=== PATIENT | female | born 1960 | race Native Hawaiian/Other Pacific Islander ===

== ENCOUNTER 2017-05-25 18:18 | Outpatient (CLI) | payer OTHER ==
[~2017-05-25 18:18] MED LIST: ACET-689 PO; BENZ100C8 PO; GLIP10TA55 PO; LANTUS100 MG/ML SC; METF500T PO; MONT10TA PO; OMEPRAZOLE20 M1 PO; UNITH DIRECT150 MCG PO
== END 2017-05-25 19:39 | disposition home or self-care (01) ==
LOC: LAB 18:18
DX: R19.7 Diarrhea, unspecified (principal)
CPT/HCPCS: 87015; 87045; 87205; 87328; 87329; 87899

== ENCOUNTER 2017-08-13 10:12 | Outpatient (CLI) | payer OTHER | END 2017-08-13 11:15 | disposition home or self-care (01) | LOC: MAMMO 10:12 | DX: Z12.31 Encounter for screening mammogram for malignant neoplasm of breast (principal) ==

== ENCOUNTER 2017-09-16 08:05 | Outpatient (CLI) | payer OTHER | END 2017-09-16 09:05 | disposition home or self-care (01) | LOC: RAD 08:05 | DX: M85.88 Other specified disorders of bone density and structure, other site (principal); Z13.820 Encounter for screening for osteoporosis ==

== ENCOUNTER 2017-10-05 17:04 | Outpatient (CLI) | payer OTHER | END 2017-10-05 19:06 | disposition home or self-care (01) | LOC: RAD 17:04 | DX: R10.9 Unspecified abdominal pain (principal) | CPT/HCPCS: 74022 ==

== ENCOUNTER 2018-06-17 11:15 | Outpatient (CLI) | payer OTHER | END 2018-06-17 19:47 | disposition home or self-care (01) | LOC: RAD 11:15 | DX: M54.6 Pain in thoracic spine (principal) ==

== ENCOUNTER 2018-08-15 09:40 | Outpatient (CLI) | payer OTHER | END 2018-08-15 19:54 | disposition home or self-care (01) | LOC: MAMMO 09:40 | DX: Z12.31 Encounter for screening mammogram for malignant neoplasm of breast (principal) ==

== ENCOUNTER 2018-09-07 10:51 | Outpatient (CLI) | payer OTHER | END 2018-09-07 20:58 | disposition home or self-care (01) | LOC: RAD 10:51 | DX: J44.1 Chronic obstructive pulmonary disease with (acute) exacerbation (principal) ==

== ENCOUNTER 2018-11-21 08:49 | Emergency (ER) | payer OTHER ==
[~2018-11-21] VITALS: Ht 170.2 cm; Wt 131.1 kg
[2018-11-21 08:56] VITALS: TEMP 97.9
[2018-11-21] MEDS ORDERED: DALIRESP500 MC1 PO (09:32)
[2018-11-21] MEDS ORDERED: ANORO ELLIPTA 61 AER INH (09:32)
[2018-11-21] MEDS ORDERED: PULMICORT180 MCG/AC INH (09:33)
[2018-11-21] MEDS ORDERED: IPRAAER INH (09:34)
[2018-11-21] MEDS ORDERED: LEVO-T125 MCG PO (09:34)
[2018-11-21] MEDS ORDERED: PROVENTIL INH (09:35)
[2018-11-21] MEDS ORDERED: CENTRUM SILVER1 TA1 PO (09:36)
[2018-11-21] MEDS ORDERED: AMITRIPTYLINE H50 MG PO (09:36)
[2018-11-21] MEDS ORDERED: ALLERGY RE50 MCG/ACT NAS (09:37)
[2018-11-21] MEDS ORDERED: ALBUSOL INH (09:42)
[2018-11-21 09:46] LABS: PLATELET COUNT 395 K/uL (152-353)
[2018-11-21 09:52] LABS: POTASSIUM 3.6 mmol/L (3.6-5.2)
[2018-11-21 11:23] VITALS: BP 122/79
== END 2018-11-21 11:23 | disposition home or self-care (01) ==
LOC: ED 08:49
DX: J44.1 Chronic obstructive pulmonary disease with (acute) exacerbation (principal)
CPT/HCPCS: 36415; 80053; 81000; 85027; 94664; 96374; 99284; J2930

== ENCOUNTER 2019-05-26 11:13 | Outpatient (CLI) | payer OTHER ==
[~2019-05-26 11:13] MED LIST changes: +ALBUSOL INH; +ALLERGY RE50 MCG/ACT NAS; +AMITRIPTYLINE H50 MG PO; +ANORO ELLIPTA 61 AER INH; +CENTRUM SILVER1 TA1 PO; +DALIRESP500 MC1 PO; +IPRAAER INH; +LEVO-T125 MCG PO; +PROVENTIL INH; +PULMICORT180 MCG/AC INH
== END 2019-05-26 23:39 | disposition home or self-care (01) ==
LOC: RAD 11:13
DX: J44.1 Chronic obstructive pulmonary disease with (acute) exacerbation (principal)

== ENCOUNTER 2019-07-27 16:23 | Outpatient (CLI) | payer OTHER | END 2019-07-27 21:43 | disposition home or self-care (01) | LOC: RAD 16:23 | DX: J44.1 Chronic obstructive pulmonary disease with (acute) exacerbation (principal) ==

== ENCOUNTER 2020-03-13 10:41 | Outpatient (CLI) | payer OTHER | END 2020-03-13 21:37 | disposition home or self-care (01) | LOC: RAD 10:41 | DX: J44.1 Chronic obstructive pulmonary disease with (acute) exacerbation (principal) ==

== ENCOUNTER 2020-05-16 11:00 | Outpatient (CLI) | payer OTHER | END 2020-05-16 20:16 | disposition home or self-care (01) | LOC: RAD 11:00 | DX: J44.1 Chronic obstructive pulmonary disease with (acute) exacerbation (principal) ==

== ENCOUNTER 2020-09-27 15:55 | Outpatient (CLI) | payer OTHER | END 2020-09-27 22:27 | disposition home or self-care (01) | LOC: CT 15:55 | PROVIDERS: ATTEND Nurse Practitioner Family | DX: J01.41 Acute recurrent pansinusitis (principal) ==

== ENCOUNTER 2021-02-10 16:10 | Observation (INO) | payer OTHER ==
[~2021-02-10] VITALS: Ht 170.2 cm; Wt 127.2 kg
[2021-02-10 17:57] LABS: PLATELET COUNT 273 K/uL (152-353)
[2021-02-10 18:40] VITALS: BP 142/83; TEMP 97.7; Ht 170.2 cm; Wt 127.2 kg
[2021-02-10 19:08] LABS: POTASSIUM 3.7 mmol/L (3.6-5.2)
[2021-02-10 20:00] VITALS: BP 127/59; TEMP 98.9
--- NOTE | 2021-02-10 20:10 | NUR ---
PT AWAKE WATCHING TV WITH NO DISTRESS. BROUGHT PT DIET DRINK AND PILLOW PER REQUEST, WILL MONITOR CLOSELY, RAILS UP, BED IN LOW POSITION, CALL LIGHT IN REACH. PT TALKATIVE WITH STAFF.
--- NOTE | 2021-02-10 21:40 | NUR ---
NURSE FROM ER AT BEDSIDE TO ATTEMPT TO GET IV ON PT. [employer] SUPERVISOR AND CHARGE NURSE UNABLE TO FIND IV SITE. 2200 IV SITE OBTAINED, SEE IV INSERTION.
--- NOTE | 2021-02-10 22:52 | NUR ---
PT AWAKE SITTING UP IN BED WATCHING TV, TALKATIVE WITH [employer] ENGINEER, NO S/S OF DISTRESS NOTED, IV INTACT TO R HAND, RESP RATE NONLABORED. GAVE PT SLIDING SCALE INSULIN NOVOLIN R 2 UNITS FOR FSBS OF 197. WILL MONITOR, RAILS UP, BED IN LOW POSITION, CALL LIGHT IN REACH.
[2021-02-11] VITALS: BP 159/85; TEMP 97.8
--- NOTE | 2021-02-11 00:21 | NUR ---
PT SITTING UP IN RECLINER STATES SHE SLEEPS IN RECLINER AT HOME AND CHAIR WAS HURTING HER NECK AND BACK. GAVE TYLENOL 1000MG PO PRN FOR CONSTANT NECK AND BACK PAIN THAT IS A "5" ON SCALE. WILL MONITOR CLOSELY, CALL LIGHT IN REACH, ENCOURAGED TO CALL NEEDED.
--- NOTE | 2021-02-11 01:00 | NUR ---
AWAKE SITTING UP IN RECLINER WITH NO S/S OF DISTRESS OR PAIN NOTED, WATCHING TV, CALL LIGHT WAS ANSWERED AND PT NEEDED HELP WITH FOOT PART OF RECLINER STATES SHE HAS NOT OTHER NEEDS. RESP RATE NONLABORED, 22G IV LOCK INTACT TO R HAND WITH NO PROBLEMS NOTED TO SITE, PT TALKATIVE WITH STAFF, WILL MONITOR CLOSELY, CALL LIGHT IN REACH, ENCOURAGED TO CALL NEEDED. PT UP IN RECLINER DUE TO PT SLEEPS IN RECLINER AT HOME. STATES HER PAIN IS BETTER NOW.
[2021-02-11 04:00] VITALS: BP 118/69; TEMP 97.5
[2021-02-11 07:58] VITALS: BP 138/72; TEMP 98.5
[2021-02-11 08:56] LABS: PLATELET COUNT 270 K/uL (152-353)
[2021-02-11 09:10] LABS: POTASSIUM 3.9 mmol/L (3.6-5.2)
[2021-02-11] MEDS ORDERED: ANORO ELLIPTA 61 AER INH (11:37)
[2021-02-11] MEDS ORDERED: ARMOUR THYRO90 MG PO (11:37)
[2021-02-11] MEDS ORDERED: ALLEGRA ALRG180 M1 PO (11:38)
[2021-02-11] MEDS ORDERED: PULMICORT180 MCG/AC INH (11:39)
--- NOTE | 2021-02-11 12:20 | NUR ---
ALL DISCHARGE INSTRUCTIONS GIVEN AND EXPLAINED TO PT. PT AND VERBALZIED UNDERSTANDING. PT LEFT VIA WC WITH NO ACUTE DISTRESS NOTED.
--- NOTE | 2021-02-11 12:28 | NUR ---
1000 DR MARSH HERE AT THIS TIME MAKING ROUNDS IN PT'S ROOM
== END 2021-02-11 12:25 | disposition home or self-care (01) ==
LOC: MED/SURG 16:10
PROVIDERS: ADMIT Family Medicine; ATTEND Family Medicine
DX: J18.8 Other pneumonia, unspecified organism (principal); E13.65 Other specified diabetes mellitus with hyperglycemia; J44.1 Chronic obstructive pulmonary disease with (acute) exacerbation
CPT/HCPCS: 36415; 80053; 82728; 82948; 83735; 84100; 85027; 85379; 86140; 87040; 93005; 94667; 94668; 94760; 96372; 96374; 99220; G0378; G0379; J1650; J1815

== ENCOUNTER 2021-05-22 10:09 | Outpatient (CLI) | payer OTHER ==
[~2021-05-22 10:09] MED LIST changes: +ALLEGRA ALRG180 M1 PO; +ARMOUR THYRO90 MG PO
== END 2021-05-22 19:45 | disposition home or self-care (01) ==
LOC: US 10:09
PROVIDERS: ATTEND Nurse Practitioner Family
DX: N81.10 Cystocele, unspecified (principal)

== ENCOUNTER 2021-09-05 08:47 | Outpatient (CLI) | payer OTHER | END 2021-09-05 19:02 | disposition home or self-care (01) | LOC: US 08:47 | PROVIDERS: ATTEND Family Medicine | DX: R32 Unspecified urinary incontinence (principal) ==

== ENCOUNTER 2022-08-20 10:20 | Outpatient (CLI) | payer OTHER | END 2022-08-20 19:10 | disposition home or self-care (01) | LOC: CT 10:20 | PROVIDERS: ATTEND Nurse Practitioner Family | DX: R91.8 Other nonspecific abnormal finding of lung field (principal) ==

== ENCOUNTER 2022-09-25 14:51 | Outpatient (CLI) | payer OTHER ==
[~2022-09-25] VITALS: Ht 170.2 cm; Wt 105.4 kg
[2022-09-25 14:50] VITALS: BP 149/82; TEMP 98.4
[2022-09-25 15:38] VITALS: BP 152/91; TEMP 98.2
[2022-09-25 15:53] VITALS: BP 157/84; TEMP 97.9
[2022-09-25 16:23] VITALS: BP 151/88; TEMP 98.1
== END 2022-09-25 20:36 | disposition home or self-care (01) ==
LOC: INF 14:51
PROVIDERS: ATTEND Family Medicine
DX: Z23 Encounter for immunization (principal); U07.1 COVID-19
CPT/HCPCS: 96374; Q0222

== ENCOUNTER 2022-12-17 17:37 | Emergency (ER) | payer OTHER ==
[~2022-12-17] VITALS: Ht 170.2 cm; Wt 103.0 kg
[2022-12-17 18:40] VITALS: BP 141/75; TEMP 98.5
== END 2022-12-17 18:45 | disposition home or self-care (01) ==
LOC: ED 17:37
DX: T78.40XA Allergy, unspecified, initial encounter (principal); T45.1X5A Adverse effect of antineoplastic and immunosuppressive drugs, initial encounter; X58.XXXA Exposure to other specified factors, initial encounter; Y92.89 Other specified places as the place of occurrence of the external cause; C34.90 Malignant neoplasm of unspecified part of unspecified bronchus or lung; F17.210 Nicotine dependence, cigarettes, uncomplicated
CPT/HCPCS: 99281

== ENCOUNTER 2023-05-03 11:52 | Emergency (ER) | payer OTHER ==
[~2023-05-03] VITALS: Ht 170.2 cm; Wt 115.7 kg
[2023-05-03 12:01] VITALS: TEMP 97
[2023-05-03 13:02] LABS: PLATELET COUNT 174 K/uL (152-353)
[2023-05-03 13:10] LABS: POTASSIUM 4.2 mmol/L (3.6-5.2)
[2023-05-03 16:54] VITALS: BP 139/74
== END 2023-05-03 16:54 | disposition home or self-care (01) ==
LOC: ED 11:52
PROVIDERS: Family Medicine
DX: R06.02 Shortness of breath (principal)
CPT/HCPCS: 80053; 85027; 93005; 94664; 99283